=== PATIENT | male | born 1960 | race Caucasian/White ===

== ENCOUNTER 2020-06-01 02:57 | Emergency (ER) | payer OTHER ==
[2020-06-01 03:16] LABS: BASOPHIL 0.6 % (0-2); EOSINOPHIL 4.5 % (0-5); HCT 46.5 % (42.0-52.0); HGB 15.3 g/dl (13.2-18.0); MCHC 32.9 g/dL (32.0-36.0); MCV 85.2 fL (78.0-100.0); MPV 10.1 fL (6.0-9.5); NEUTROPHIL 57.6 % (41-80); NRBC 0; PLT 292 K/uL (150-400); RBC 5.46 M/uL (4.70-6.00); RDW 15.2 % (11.5-14.0); WBC 10.7 K/uL (4.0-10.5)
[2020-06-01 03:23] LABS: INR 0.97 (0.9-1.2); PROTHROMBIN TIME 12.2 SECONDS (11.4-13.6); PTT 31.5 SECONDS (22.2-34.7)
[2020-06-01 03:30] LABS: ALBUMIN 4.2 g/dL (3.4-5.0); BILIRUBIN - TOTAL 0.3 mg/dL (0.2-1.0); BUN/CREAT RATIO (CALC) 11.2 RATIO; CREATININE 1.34 mg/dL (0.67-1.17); GLOBULIN (CALCULATION) 3.2 g/dL; POTASSIUM 3.6 mmol/L (3.5-5.1); TOTAL PROTEIN 7.4 g/dL (6.4-8.2)
== END 2020-06-01 06:09 | disposition home or self-care (01) ==
LOC: FER 02:57
PROVIDERS: Emergency Medicine
DX: R07.89 Other chest pain (principal); I10 Essential (primary) hypertension; Z95.9 Presence of cardiac and vascular implant and graft, unspecified; Z82.49 Family history of ischemic heart disease and other diseases of the circulatory system; Z87.891 Personal history of nicotine dependence
CPT/HCPCS: 36415; 71045; 80053; 83690; 84484; 85025; 85379; 85610; 85730; 93005